=== PATIENT | female | born 1960 | race Caucasian/White ===

== ENCOUNTER → 2018-04-26 11:05 | Outpatient (CLI) | payer OTHER, SELFPAY ==
--- NOTE | 2018-04-26 11:07 | DI.RAD.S_ITS ---
PROCEDURE: XR CHEST 2V INDICATIONS: LLL adventitous breath sounds TECHNIQUE: 2 views of the chest were acquired. COMPARISON: None. FINDINGS: Surgical changes and devices: None. Lungs and pleura: No pleural effusions or pneumothorax. Lungs are clear. Mediastinum: Mediastinal contours are normal. Heart size is normal. Bones and chest wall: No suspicious bony abnormalities. Soft tissues appear unremarkable. IMPRESSION: No acute cardiopulmonary disease process. Dictated by: Sayra Perez MD, PhD on 04/26/2018 at 11:23 Approved by: Sayra Perez MD, PhD on 04/26/2018 at 11:24
== END ==
PROVIDERS: PCP Physician Assistant; Visit Provider Physician Assistant
DX: R50.9 Fever, unspecified (principal); R06.9 Unspecified abnormalities of breathing
CPT/HCPCS: 71046

== ENCOUNTER → 2018-08-15 10:37 | Outpatient (CLI) | payer OTHER, SELFPAY ==
[2018-08-15 11:09] LABS: Alanine Aminotransferase 31 IU/L (9-52); Albumin 4.4 g/dL (3.5-5.0); Albumin Globulin Ratio 1.5 (1.0-2.8); Alkaline Phosphatase 56 U/L (38-126); Aspartate Aminotransferase 22 IU/L (14-36); Bilirubin Total 0.7 mg/dL (0.2-1.3); Blood Urea Nitrogen 24 mg/dL (7-17); Calcium 9.8 mg/dL (8.4-10.2); Carbon Dioxide 29 mmol/L (22-32); Chloride 103 mmol/L (98-107); Cholesterol 233 mg/dL (140-199); Estimated Glomerular Filt Rate > 60.0 mL/min (>60); Glucose 90 mg/dL (70-100); HDL Cholesterol 52 mg/dL (40-60); HEMOLYSIS < 15 (0-50); LDL Cholesterol Calculated 167 mg/dL (<100); Sodium 141 mmol/L (137-145); Total Protein 7.4 g/dL (6.3-8.2); Triglycerides 69 mg/dL (35-150)
[2018-08-15 11:27] LABS: Creatinine Urine Random 110.9 mg/dL
[2018-08-15 11:31] LABS: Microalbumi Creatinin Ratio Ur 9.9 ug/mg CR (<30); Microalbumin Urine Random 1.1 mg/dL (0-1.6)
== END ==
PROVIDERS: PCP Physician Assistant; Visit Provider Physician Assistant
DX: E78.5 Hyperlipidemia, unspecified (principal); I10 Essential (primary) hypertension
CPT/HCPCS: 36415; 80053; 80061; 82043; 82570

== ENCOUNTER → 2018-10-19 07:43 | Outpatient (CLI) | payer OTHER, SELFPAY ==
[2018-10-21 15:58] LABS: Fecal Immunochemical Test NOT DETECTED (NOT DETECTED)
== END ==
PROVIDERS: PCP Physician Assistant; Visit Provider Physician Assistant
DX: Z12.11 Encounter for screening for malignant neoplasm of colon (principal)
CPT/HCPCS: 82274

== ENCOUNTER → 2019-03-15 08:56 | Outpatient (CLI) | payer OTHER, SELFPAY ==
[2019-03-15 10:02] LABS: Cholesterol 132 mg/dL (140-199); HDL Cholesterol 41 mg/dL (40-60); LDL Cholesterol Calculated 76 mg/dL (<100); Triglycerides 73 mg/dL (35-150)
== END ==
PROVIDERS: PCP Physician Assistant; Visit Provider Physician Assistant
DX: E78.5 Hyperlipidemia, unspecified (principal)
CPT/HCPCS: 36415; 80061

== ENCOUNTER → 2019-03-17 09:11 | Outpatient (CLI) | payer OTHER, SELFPAY ==
--- NOTE | 2019-03-17 09:13 | DI.RAD.S_ITS ---
PROCEDURE: XR FOOT LT MIN 3V INDICATIONS: Tender lump on top of foot - suspect OA TECHNIQUE: 3 views of the foot were acquired. COMPARISON: [facility], , FOOT 3V LEFT, 03/28/2010, 14:44. FINDINGS: Bones: No fractures or dislocations. Mild osteophytic spurring directed cephalad is noted at the tarsal-metatarsal articulation seen on the lateral view. No suspicious bony lesions. Soft tissues: No tibiotalar joint effusion. Achilles tendon appears normal. IMPRESSION: Degenerative osteoarthritis, producing osteophytic spurring directed cephalad at the base of the metatarsal bones seen on the lateral view. No osseous infection or neoplasm is suspected. Dictated by: Cricket Lima M.D. on 03/17/2019 at 10:01 Approved by: Cricket Lima M.D. on 03/17/2019 at 10:03
== END ==
PROVIDERS: PCP Physician Assistant; Visit Provider Physician Assistant
DX: M79.671 Pain in right foot (principal); M19.072 Primary osteoarthritis, left ankle and foot
CPT/HCPCS: 73630

== ENCOUNTER → 2020-10-11 14:26 | Outpatient (CLI) | payer OTHER, SELFPAY ==
[2020-10-11] MEDS: COVID-19 VACC, Ad26(JANSSEN)/PF 0.5 ML IM (14:33)
== END ==
PROVIDERS: PCP Registered Nurse Diabetes Educator; Visit Provider Internal Medicine
DX: Z23 Encounter for immunization (principal)
CPT/HCPCS: 0031A; 91303

== ENCOUNTER → 2020-11-22 11:50 | Outpatient (CLI) | payer OTHER, SELFPAY ==
--- NOTE | 2020-11-22 11:51 | DI.MG.S_ITS ---
BILATERAL DIGITAL DIAGNOSTIC MAMMOGRAM 3D/2D: 11/22/2020 CLINICAL: Left breast lump. Comparison is made to exams dated: 03/20/2009 mammogram, 06/15/2008 mammogram, and 12/31/2007 mammogram - [facility]. The tissue of both breasts is heterogeneously dense. This may lower the sensitivity of mammography. There is a 2.5 cm round high density mass with an indistinct margin and diffuse linear regional pleomorphic calcifications in the left breast at 6 o'clock posterior depth. This is seen in additional views. This correlates as palpated. No other significant masses, calcifications, or other findings are seen in either breast. IMPRESSION: INCOMPLETE: NEEDS ADDITIONAL IMAGING EVALUATION The 2.5 cm round high density mass in the left breast is suspicious for carcinoma. Ultrasound is recommended for full evaluation of this area. This was performed immediately following this exam. This exam was interpreted at Station ID: [id number]. NOTE: For mammograms, a report in lay terms will be sent to the patient. Approximately 15% of breast malignancies will not be visualized mammographically. In the management of a palpable breast mass, a negative mammogram must not discourage biopsy of a clinically suspicious lesion. Electronically Signed By: Fatuma hernandez/:11/22/2020 13:05:58 copy to: Tavo RODRIGUEZ ACR BI-RADS Category 0: Incomplete [id number]
--- NOTE | 2020-11-22 11:51 | DI.US.S_ITS ---
ULTRASOUND OF LEFT BREAST AND AXILLA: 11/22/2020 CLINICAL: Palpable left breast lump. Comparison is made to exams dated: 11/22/2020 mammogram, 03/20/2009 mammogram, 06/15/2008 mammogram, and 12/31/2007 mammogram - [facility]. Color flow and real-time ultrasound of the left breast axilla were performed. Durán scale images of the real-time examination were reviewed. There is a 2.2 cm x 2.4 cm x 1.9 cm round mass with a microlobulated, angular, and non-circumscribed margin in the left breast at 5 o'clock middle depth 5 cm from the nipple. This round mass displays posterior acoustic shadowing. This correlates as palpated and with mammography findings. There are calcifications within the mass also seen on mammography. Color flow imaging demonstrates that there is increased vascularity. No significant abnormalities were seen sonographically in the left axilla. IMPRESSION: HIGHLY SUGGESTIVE OF MALIGNANCY The 2.2 cm x 2.4 cm x 1.9 cm round mass in the left breast most likely is carcinoma and is highly suggestive of malignancy. An ultrasound guided biopsy is recommended. Findings and recommendations were discussed with the patient by Dr. Cricket Lima at time of exam. This exam was interpreted at Station ID: [id number]. Electronically Signed By: Fatuma hernandez/:11/22/2020 13:12:13 copy to: Tavo RODRIGUEZ letter sent: Biopsy Required Ultrasound BI-RADS: 5 Highly suggestive of malignancy
== END ==
PROVIDERS: PCP Registered Nurse Diabetes Educator; Referring Provider Nurse Practitioner Family; Visit Provider Nurse Practitioner Family
DX: R92.8 Other abnormal and inconclusive findings on diagnostic imaging of breast (principal); N63.23 Unspecified lump in the left breast, lower outer quadrant
CPT/HCPCS: 76642; 77066; G0279

== ENCOUNTER → 2020-11-29 07:03 | Outpatient (CLI) | payer OTHER, SELFPAY ==
[2020-11-29 08:42] LABS: Hematocrit 44.2 % (36-46); Hemoglobin 14.8 g/dL (12.0-16.0); Mean Corpuscular HGB Conc 33.4 % (30-36); Mean Corpuscular Hemoglobin 31.5 PG (26-34); Mean Corpuscular Volume 94.4 fL (80-100); Platelet Count 285 X10^3/uL (150-400); Red Blood Cell Count 4.68 X10^6/uL (4.0-5.2); Red Cell Distribution Width 13.6 % (11.6-14.8); White Blood Cell Count 5.7 X10^3/uL (4.5-11.0)
[2020-11-29 08:50] LABS: Alanine Aminotransferase 23 IU/L (<35); Albumin 4.4 g/dL (3.5-5.0); Albumin Globulin Ratio 1.4 (1.0-2.8); Alkaline Phosphatase 64 U/L (38-126); Aspartate Aminotransferase 29 IU/L (14-36); Bilirubin Total 0.5 mg/dL (0.2-1.3); Blood Urea Nitrogen 18 mg/dL (7-17); Calcium 10.6 mg/dL (8.4-10.2); Carbon Dioxide 33 mmol/L (22-32); Chloride 104 mmol/L (98-107); Cholesterol 145 mg/dL (140-199); Estimated Glomerular Filt Rate > 60.0 mL/min (>60); Globulin 3.2 g/dL (1.7-4.1); Glucose 108 mg/dL (80-110); HDL Cholesterol 51 mg/dL (40-60); HEMOLYSIS < 15 (0-50); LDL Cholesterol Calculated 84 mg/dL (<100); Sodium 145 mmol/L (137-145); Total Protein 7.6 g/dL (6.3-8.2); Triglycerides 50 mg/dL (35-150)
[2020-11-29 08:57] LABS: Potassium 5.7 mmol/L (3.4-5.1)
[2020-11-29 09:17] LABS: TSH w/ Reflex to FT4 4.26 uIU/mL (0.47-4.68)
== END ==
PROVIDERS: PCP Registered Nurse Diabetes Educator; Referring Provider Registered Nurse Diabetes Educator; Visit Provider Registered Nurse Diabetes Educator
DX: E78.5 Hyperlipidemia, unspecified (principal); I10 Essential (primary) hypertension
CPT/HCPCS: 36415; 80053; 80061; 84443; 85027

== ENCOUNTER → 2020-11-30 09:25 | Outpatient (CLI) | payer OTHER, SELFPAY ==
[2020-11-30 11:15] LABS: Alanine Aminotransferase 21 IU/L (<35); Albumin 4.1 g/dL (3.5-5.0); Albumin Globulin Ratio 1.5 (1.0-2.8); Alkaline Phosphatase 62 U/L (38-126); Aspartate Aminotransferase 27 IU/L (14-36); BUN Creatinine Ratio 31.2 (6-22); Bilirubin Total 0.6 mg/dL (0.2-1.3); Blood Urea Nitrogen 24 mg/dL (7-17); Calcium 9.6 mg/dL (8.4-10.2); Carbon Dioxide 29 mmol/L (22-32); Chloride 99 mmol/L (98-107); Estimated Glomerular Filt Rate > 60.0 mL/min (>60); Globulin 2.8 g/dL (1.7-4.1); Glucose 83 mg/dL (80-110); HEMOLYSIS < 15 (0-50); Potassium 4.1 mmol/L (3.4-5.1); Sodium 137 mmol/L (137-145); Total Protein 6.9 g/dL (6.3-8.2)
== END ==
PROVIDERS: PCP Registered Nurse Diabetes Educator; Referring Provider Registered Nurse Diabetes Educator; Visit Provider Registered Nurse Diabetes Educator
DX: E87.5 Hyperkalemia (principal); I10 Essential (primary) hypertension
CPT/HCPCS: 36415; 80053

== ENCOUNTER → 2020-12-06 13:48 | Outpatient (CLI) | payer OTHER, SELFPAY ==
--- NOTE | 2020-12-06 | DI.MG.S_ITS ---
UNILATERAL LEFT DIGITAL DIAGNOSTIC MAMMOGRAM POST-NEEDLE BIOPSY: 12/06/2020 CLINICAL: Abnormal Mammogram. Comparison is made to exams dated: 11/22/2020 mammogram, 11/22/2020 ultrasound, 03/20/2009 mammogram, and 06/15/2008 mammogram - [facility]. The tissue of left breast is heterogeneously dense. This may lower the sensitivity of mammography. There is a marker clip in the appropriate position in the left breast at 4 o'clock middle depth. This marker clip placement is at the biopsy site. IMPRESSION: POST PROCEDURE MAMMOGRAM FOR MARKER PLACEMENT There was a successful marker clip placement in the left breast This exam was interpreted at Station ID: [id number]. NOTE: For mammograms, a report in lay terms will be sent to the patient. Approximately 15% of breast malignancies will not be visualized mammographically. In the management of a palpable breast mass, a negative mammogram must not discourage biopsy of a clinically suspicious lesion. Electronically Signed By: Lamine gonzalez/:12/06/2020 16:15:07 copy to: Tavo RODRIGUEZ ACR BI-RADS Category Post-procedure mammogram for marker placement
--- NOTE | 2020-12-06 | PATH_ITS ---
[facility] Accession Number: [id number] . 01 Material submitted: . breast - LEFT BREAST MASS/BIOPSY . 02 Diagnosis: Left Breast, Mass, Core Needle Biopsies: Invasive ductal carcinoma with the following features: Tumor size: Greatest dimension of largest invasive focus: 13 mm. Histologic grade ([place] histologic score): Glandular/tubular differentiation: Score 3. Nuclear pleomorphism: Score 3. Mitotic rate: Score 2. Overall grade: Grade 3. Ductal carcinoma in situ: Focally present. Architectural pattern: Solid. Nuclear grade: Grade 2-3. Necrosis: Not identified. Lymphovascular invasion: Not identified. Microcalcifications: Present in invasive carcinoma. Ancillary studies: Estrogen receptor status: Positive, 21-30% of cells. Average intensity of staining: Moderate. Progesterone receptor status: Negative (less than 1% of cells). HER-2 by immunohistochemistry: Equivocal (score 2+). [facility] 12/11/2020 1500 Local . 02 Comment: As part of routine quality assurance auditor, Dr. Harp also reviewed the H/E slides for this case and agrees with the diagnosis. Dr. Ivy gave preliminary results to Lorelei in Tavo Krishna's office on 12/08/2020 and spoke with Tavo Krishna on 12/08/2020. HER2 FISH will be performed and the results reported as an addendum. . 02 Electronically signed: . Alida Ivy MD, Pathologist NPI- [id number] . 01 Gross description: . The specimen is received in formalin, labeled breast biopsy and consists of multiple mcdermott cores of fibroadipose tissue ranging from 0.3-1.5 cm in length by 0.3 cm in diameter. The specimen is entirely submitted in cassette A1. . Formalin fixation time: Approximately 25 hours. (EA:[id number]) /MRV 12/07/2020 1620 Local . 02 Microscopic: . Immunohistochemical stains were performed to characterize cells of interest. All control stains showed appropriate reactivity. . Estrogen Receptor (SP1): Positive, 21-30% of cells, moderate intensity. Progesterone Receptor (1E2): Negative (less than 1% of cells). HER2 (4B5): Equivocal (score 2+). P63: Area of interest absent in the level used for staining. D2-40: Highlights vessels. GATA3: Positive. . INTERPRETATION: D2-40 highlights rare lymphovascular channels; however, there is no definite evidence of lymphovascular invasion by carcinoma cells. A p63 stain was performed to evaluate for DCIS; however, the area of interest is not well represented in the section used for IHC staining. . Cold Ischemia and Fixation Times: Meets requirements in the latest version of the ASCO/CAP guidelines. Testing performed on Block Number: A1 . TECHNICAL NOTE: The scoring criteria for breast biomarkers by immunohistochemistry is based on the current ASCO/CAP guidelines (Sindhu et al, Arch Pathol Lab Med 2010: 134(6): 907-922 / Agus Will al, Arch Pathol Lab Med 2014: 138(2):241-256). Deparaffinized sections of formalin fixed tissue (along with appropriate positive controls) are incubated with the above antibody(s). Using the automated Linda stainer, tissue is incubated with the designated antibody* which is then localized by a non-biotin, dual polymer detection system. The external controls are reviewed for appropriate reactivity and found to be adequate. Results on the target cell population are indicated above. These tests have not been validated on decalcified tissue. * This test was developed and its performance characteristics determined by [employer]. It has not been cleared or approved by the U.S. Food and Drug Administration. The FDA has determined that such clearance or approval is not necessary. This test is used for clinical purposes. It should not be regarded as investigational or for research. . 02 Pathologist provided ICD-10: C50.912 . 02 CPT . 547745, Q46173, D53182, 233714, 141474, 038038 Performed at: 01 [facility] [address] [place] [address] [address], [place], [place] [id number] MD Khoa Tanner MD Phone: [phone] Performed at: 02 [facility] [address] [place] [id number] MD Alida Ivy MD Phone: [phone]
--- NOTE | 2020-12-06 | DI.US.S_ITS ---
ULTRASOUND GUIDED BIOPSY LEFT BREAST USING VACUUM DEVICE WITH MARKING DEVICE INSERTED: 12/06/2020 CLINICAL: Left breast mass. PATIENT CONSENT: Risks (minor bleeding, infection, vasovagal reaction and repeat procedure), benefits and alternatives were explained to the patient and written informed consent was obtained. Correlation is made to exams dated: 11/22/2020 ultrasound, 11/22/2020 mammogram, 03/20/2009 mammogram, 06/15/2008 mammogram, and 12/31/2007 mammogram - [facility]. An ultrasound guided biopsy using real-time ultrasound was performed for the mass located in the left breast at 4 o'clock middle depth. The skin was prepped in the usual manner. Local anesthetic was administered to the access site. A small incision was made in the breast. The abnormality was approached from the lateral aspect. A biopsy needle was placed adjacent to the abnormality under ultrasound guidance. Once the needle was documented to be in the correct location, seven specimens were obtained using the Mammotome biopsy system. A clip was inserted into the biopsy cavity. The specimens were sent to the laboratory for pathological analysis. IMPRESSION: ULTRASOUND GUIDED BIOPSY MALIGNANT Ultrasound guided biopsy of the mass in the left breast at 4 o'clock middle depth was successful. Pathology indicates malignant invasive ductal carcinoma and ductal carcinoma in situ. Pathology results are concordant with imaging findings. A surgical/oncologic consultation is recommended. This exam was interpreted at Station ID: [id number]. Lamine gonzalez,ar/:12/12/2020 12:09:10 copy to: Tavo RODRIGUEZ
[2020-12-08 15:10] LABS: Fecal Immunochemical Test Negative (Negative)
== END ==
PROVIDERS: PCP Registered Nurse Diabetes Educator; Referring Provider Nurse Practitioner Family; Visit Provider Nurse Practitioner Family
DX: C50.512 Malignant neoplasm of lower-outer quadrant of left female breast (principal); Z17.0 Estrogen receptor positive status [ER+]; Z12.11 Encounter for screening for malignant neoplasm of colon
CPT/HCPCS: 19083; 77065; 82274

== ENCOUNTER → 2023-03-10 08:21 | Outpatient (CLI) | payer OTHER, SELFPAY ==
[2023-03-10 09:56] LABS: Hematocrit 40.5 % (36-46); Mean Corpuscular HGB Conc 34.5 % (30-36); Mean Corpuscular Hemoglobin 31.7 PG (26-34); Mean Corpuscular Volume 91.9 fL (80-100); Platelet Count 279 X10^3/uL (150-400); Red Blood Cell Count 4.41 X10^6/uL (4.0-5.2); Red Cell Distribution Width 13.6 % (11.6-14.8); White Blood Cell Count 5.2 X10^3/uL (4.5-11.0)
[2023-03-10 10:24] LABS: Alanine Aminotransferase 24 IU/L (<35); Albumin 3.9 g/dL (3.5-5.0); Albumin Globulin Ratio 1.4 (1.0-2.8); Alkaline Phosphatase 63 U/L (38-126); Aspartate Aminotransferase 26 IU/L (14-36); BUN Creatinine Ratio 24.7 (6-22); Bilirubin Total 0.7 mg/dL (0.2-1.3); Blood Urea Nitrogen 19 mg/dL (7-17); Carbon Dioxide 29 mmol/L (22-32); Chloride 103 mmol/L (98-107); Cholesterol 121 mg/dL (140-199); Estimated Glomerular Filt Rate > 60 mL/min (>60); Globulin 2.8 g/dL (1.7-4.1); Glucose 91 mg/dL (80-110); HDL Cholesterol 39 mg/dL (40-60); HEMOLYSIS < 15 (0-50); LDL Cholesterol Calculated 66 mg/dL (<100); Potassium 3.8 mmol/L (3.4-5.1); Sodium 138 mmol/L (137-145); Total Protein 6.7 g/dL (6.3-8.2); Triglycerides 80 mg/dL (35-150)
== END ==
PROVIDERS: PCP Registered Nurse Diabetes Educator; Referring Provider Registered Nurse Diabetes Educator; Visit Provider Registered Nurse Diabetes Educator
DX: E78.5 Hyperlipidemia, unspecified (principal); I10 Essential (primary) hypertension
CPT/HCPCS: 36415; 80053; 80061; 84443; 85027

== ENCOUNTER → 2024-05-13 09:48 | Outpatient (CLI) | payer OTHER, SELFPAY ==
[2024-05-13 10:32] LABS: Hematocrit 44.1 % (36-46); Hemoglobin 14.9 g/dL (12.0-16.0); Mean Corpuscular HGB Conc 33.8 % (30-36); Mean Corpuscular Hemoglobin 32.4 PG (26-34); Mean Corpuscular Volume 95.8 fL (80-100); Platelet Count 309 X10^3/uL (150-400); Red Blood Cell Count 4.61 X10^6/uL (4.0-5.2); Red Cell Distribution Width 13.4 % (11.6-14.8); White Blood Cell Count 5.8 X10^3/uL (4.5-11.0)
[2024-05-13 10:58] LABS: Alanine Aminotransferase 21 IU/L (<35); Albumin Globulin Ratio 1.4 (1.0-2.8); Alkaline Phosphatase 64 U/L (38-126); Aspartate Aminotransferase 27 IU/L (14-36); BUN Creatinine Ratio 21.4 (6-22); Bilirubin Total 0.7 mg/dL (0.2-1.3); Blood Urea Nitrogen 18 mg/dL (7-17); Calcium 9.9 mg/dL (8.4-10.2); Carbon Dioxide 27 mmol/L (22-32); Chloride 104 mmol/L (98-107); Cholesterol 144 mg/dL (140-199); Estimated Glomerular Filt Rate > 60 mL/min (>60); Globulin 2.9 g/dL (1.7-4.1); Glucose 95 mg/dL (80-110); HDL Cholesterol 51 mg/dL (40-60); HEMOLYSIS < 15 (0-50); LDL Cholesterol Calculated 78 mg/dL (<100); Potassium 3.9 mmol/L (3.4-5.1); Sodium 139 mmol/L (137-145); Total Protein 6.9 g/dL (6.3-8.2); Triglycerides 73 mg/dL (35-150)
[2024-05-13 13:12] LABS: TSH w/ Reflex to FT4 2.77 uIU/mL (0.47-4.68)
== END ==
PROVIDERS: PCP Registered Nurse Diabetes Educator; Referring Provider Registered Nurse Diabetes Educator; Visit Provider Registered Nurse Diabetes Educator
DX: I10 Essential (primary) hypertension (principal); E78.5 Hyperlipidemia, unspecified
CPT/HCPCS: 36415; 80053; 80061; 84443; 85027

== ENCOUNTER → 2025-05-16 09:32 | Outpatient (CLI) | payer MEDICARE, SELFPAY ==
[2025-05-16 10:43] LABS: Hematocrit 42.5 % (36-46); Hemoglobin 14.4 g/dL (12.0-16.0); Mean Corpuscular HGB Conc 34.0 % (30-36); Mean Corpuscular Hemoglobin 32.3 PG (26-34); Mean Corpuscular Volume 95.0 fL (80-100); Platelet Count 301 X10^3/uL (150-400)
[2025-05-16 11:10] LABS: Alanine Aminotransferase 24 IU/L (<35); Albumin 4.2 g/dL (3.5-5.0); Albumin Globulin Ratio 1.6 (1.0-2.8); Alkaline Phosphatase 60 U/L (38-126); Blood Urea Nitrogen 14 mg/dL (7-17); Calcium 9.7 mg/dL (8.4-10.2); Carbon Dioxide 26 mmol/L (22-32); Chloride 104 mmol/L (98-107); Cholesterol 145 mg/dL (140-199); Estimated Glomerular Filt Rate > 60 mL/min (>60); Globulin 2.6 g/dL (1.7-4.1); Glucose 96 mg/dL (70-99); HDL Cholesterol 43 mg/dL (40-60); HEMOLYSIS < 15 (0-50); Potassium 3.6 mmol/L (3.4-5.1); Sodium 141 mmol/L (137-145); Total Protein 6.8 g/dL (6.3-8.2); Triglycerides 145 mg/dL (35-150)
[2025-05-16 11:35] LABS: TSH w/ Reflex to FT4 2.68 uIU/mL (0.47-4.68)
== END ==
PROVIDERS: PCP Registered Nurse Diabetes Educator; Referring Provider Registered Nurse Diabetes Educator; Visit Provider Registered Nurse Diabetes Educator
DX: I10 Essential (primary) hypertension (principal); N63.20 Unspecified lump in the left breast, unspecified quadrant
CPT/HCPCS: 36415; 80053; 80061; 84443; 85027